=== PATIENT | male | born 1985 | race Two or more races ===

== ENCOUNTER 2017-12-18 18:41 | Emergency (ER) | payer SELFPAY ==
[~2017-12-18] VITALS: Ht 172.7 cm; Wt 81.6 kg
[2017-12-18 19:18] VITALS: BP 132/81
[2017-12-18] MEDS ORDERED: KETOROLAC 60 MG/2 ML INJ. IM ONE (19:45)
[2017-12-18] MEDS ORDERED: CLOB15CR TP (20:47)
[2017-12-18] MEDS ORDERED: CEPH-264 PO (20:47)
--- NOTE | 2017-12-18 20:47 | PHYS DOC ---
Past Medical History Past Medical History: No Pertinent History Past Surgical History: No Surgical History Additional Information: 0.25 PPD Alcohol Use: None Drug Use: None Adult General Chief Complaint Chief Complaint: INSECT BITE HPI HPI Patient is a 32 year old male who presents with bug bites to his forehead and behind his ear. He states that they are extremely itchy. They have been in place for about 4 days. He has tried [id number]-[id number] cream with no relief. He is also had a headache around his temples and in through the back of his head intermittently for 4 days. He denies changes in vision, gait changes, nausea or vomiting or fever. He has tried ibuprofen and Tylenol with little relief. Review of Systems Review of Systems Constitutional: Denies fever or chills [] Eyes: Denies change in visual acuity, redness, or eye pain [] HENT: Denies nasal congestion or sore throat [] Respiratory: Denies cough or shortness of breath [] Cardiovascular: No additional information not addressed in HPI [] GI: Denies abdominal pain, nausea, vomiting, bloody stools or diarrhea [] : Denies dysuria or hematuria [] Musculoskeletal: Denies back pain or joint pain [] Integument: See history of present illness Neurologic: See history of present illness Endocrine: Denies polyuria or polydipsia [] All other systems were reviewed and found to be within normal limits, except as documented in this note. Current Medications Current Medications Current Medications Medications (Trade) Dose Ordered Sig/Dennis Start Time Stop Time Status Last Admin Dose Admin Ketorolac Tromethamine (Toradol Im) 60 mg 1X ONCE 12/18/17 19:45 12/18/17 19:46 DC 12/18/17 20:19 60 MG Allergies Allergies Allergies Coded Allergies Type Severity Reaction Last Updated Verified No Known Drug Allergies 11/20/14 No Physical Exam Physical Exam Constitutional: Well developed, well nourished, no acute distress, non-toxic appearance. [] HENT: Normocephalic, atraumatic, bilateral external ears normal, oropharynx moist, no oral exudates, nose normal. [] Eyes: PERRLA, EOMI, conjunctiva normal, no discharge. [] Neck: Normal range of motion, no tenderness, supple, no stridor. [] Cardiovascular:Heart rate regular rhythm, no murmur [] Lungs & Thorax: Bilateral breath sounds clear to auscultation [] Abdomen: Bowel sounds normal, soft, no tenderness, no masses, no pulsatile masses. [] Skin: There are are several small erythematous papules to the forehead and behind the right ear that are consistent with an insect bite, they appear to be Oakleaf gall might bites Back: No tenderness, no meningeal tenderness, no CVA tenderness. [] Extremities: No tenderness, no cyanosis, no clubbing, ROM intact, no edema. [] Neurologic: Alert and oriented X 3, normal motor function, normal sensory function, no focal deficits noted, cranial nerves II through XII grossly intact. [] Psychologic: Affect normal, judgement normal, mood normal. [] Current Patient Data Vital Signs Vital Signs Date Time Temp Pulse Resp B/P (MAP) Pulse Ox O2 Delivery O2 Flow Rate FiO2 12/18/17 19:18 98.3 72 14 132/81 (98) 98 Room Air 98.3 EKG EKG [] Radiology/Procedures Radiology/Procedures [] Course & Med Decision Making Course & Med Decision Making Pertinent Labs and Imaging studies reviewed. (See chart for details) []The patient was given a dose of Toradol in the emergency department for his headache. Dragon Disclaimer Dragon Disclaimer This electronic medical record was generated, in whole or in part, using a voice recognition dictation system. Departure Departure Impression: Primary Impression: Insect bites Additional Impression: Headache Disposition: 01 HOME, SELF-CARE Condition: STABLE Referrals: NO PCP (PCP) Patient Instructions: General Headache Without Cause, Insect Bite Additional Instructions: Use the medication as directed. Follow-up with your primary care provider in 3 days if not improving or return to the emergency department if worsening. Scripts Cephalexin (KEFLEX) 500 Mg Capsule 1 CAP PO TID, #30 CAP Prov: ANDERS LOVE APRN 12/18/17 Clobetasol Propionate (CLOBETASOL PROPIONATE) 15 Gm Cream..g. 1 BORIS TP BID, #30 GM 1 Refill Prov: ANDERS LOVE APRN 12/18/17 Attending Signature Attending Signature I have reviewed the PA/BRIQUETTER OPERATOR's note and plan of care. I was available for consultation as needed during the patient's visit in the emergency department. I agree with the clinical impression, plan, and disposition. Problem Qualifiers ANDERS LOVE APRN Dec 18, 2017 20:47 DAMIEN SUMNER DO Dec 22, 2017 03:42
== END 2017-12-18 20:52 | disposition home or self-care (01) ==
LOC: ER 18:41
DX: S00.86XA Insect bite (nonvenomous) of other part of head, initial encounter (principal); S00.461A Insect bite (nonvenomous) of right ear, initial encounter; F17.200 Nicotine dependence, unspecified, uncomplicated; W57.XXXA Bitten or stung by nonvenomous insect and other nonvenomous arthropods, initial encounter; Y93.89 Activity, other specified; Y92.89 Other specified places as the place of occurrence of the external cause; Y99.8 Other external cause status
CPT/HCPCS: 96372; 99283; J1885

== ENCOUNTER 2017-12-19 19:31 | Emergency (ER) | payer SELFPAY ==
[~2017-12-19] VITALS: Ht 172.7 cm; Wt 81.6 kg
[~2017-12-19 19:31] MED LIST: CEPH-264 PO; CLOB15CR TP
[2017-12-19 20:15] VITALS: BP 125/79
[2017-12-19] MEDS ORDERED: diphenhydrAMINE 50 MG/ML VIAL IVP ONE (21:15)
[2017-12-19] MEDS ORDERED: METOCLOPRAMIDE HCL 10 MG/2 ML VIAL. IV ONE (21:15)
[2017-12-19 21:32] LABS: BILIRUBIN,URINE NEGATIVE (NEG); CLARITY,URINE CLEAR; COLOR,URINE YELLOW; NITRITE,URINE NEGATIVE (NEG); PH,URINE 5.5; PROTEIN,URINE NEGATIVE (NEG-TRACE)
--- NOTE | 2017-12-19 21:40 | RAD ---
CT scan of the head without contrast 12/19/2017 Clinical History: Worsening headache for 5 days. Technique: Unenhanced, contiguous, 5 mm axial sections were obtained through the head. One or more of the following individualized dose reduction techniques were utilized for this study: 1. Automated exposure control. 2. Adjustment of the mA and/or kV according to patient size. 3. Use of iterative reconstruction technique. Findings: The ventricles and sulci are within normal limits in size and configuration. No focal area of abnormal attenuation is seen involving the brain parenchyma. No extra-axial fluid collection is seen. No skull fracture is seen. A 2 cm mucous retention cyst is seen involving the right maxillary sinus. A 2.7 cm mucous retention cyst is seen involving left maxillary sinus. Mild to moderate mucosal thickening is seen involving the sphenoid sinus. Impression: No acute intracranial abnormality is seen. Electronically signed by: Grayson Grant MD (12/19/2017 9:36 PM) [facility]
[2017-12-19 21:44] LABS: BACTERIA,URINE 0 /HPF (0-FEW); SQUAMOUS EPITHELIAL CELL,UR FEW /LPF; WBC,URINE 0 /HPF (0-4)
--- NOTE | 2017-12-19 21:47 | PHYS DOC ---
Past Medical History Past Medical History: No Pertinent History Past Surgical History: No Surgical History Alcohol Use: None Drug Use: None Adult General Chief Complaint Chief Complaint: HEADACHE HPI HPI Patient is a 32 year old male who presents with a headache x 5 days. He denies visual changes, gait changes, nausea or vomiting. The patient was treated here yesterday for insect bites. He has been taking Advil for his headache. He did get a dose of Toradol yesterday in the emergency department for his headache. Review of Systems Review of Systems Constitutional: Denies fever or chills [] Eyes: Denies change in visual acuity, redness, or eye pain [] HENT: Denies nasal congestion or sore throat [] Respiratory: Denies cough or shortness of breath [] Cardiovascular: No additional information not addressed in HPI [] GI: Denies abdominal pain, nausea, vomiting, bloody stools or diarrhea [] : Denies dysuria or hematuria [] Musculoskeletal: Denies back pain or joint pain [] Integument: Denies rash or skin lesions [] Neurologic: See history of present illness Endocrine: Denies polyuria or polydipsia [] All other systems were reviewed and found to be within normal limits, except as documented in this note. Current Medications Current Medications Current Medications Medications (Trade) Dose Ordered Sig/Dennis Start Time Stop Time Status Last Admin Dose Admin Diphenhydramine HCl (Benadryl) 50 mg 1X ONCE 12/19/17 21:15 12/19/17 21:17 DC 12/19/17 21:39 50 MG Ketorolac Tromethamine (Toradol 30mg Vial) 30 mg 1X ONCE 12/19/17 22:30 12/19/17 22:31 DC 12/19/17 22:42 30 MG Metoclopramide HCl (Reglan Vial) 10 mg 1X ONCE 12/19/17 21:15 12/19/17 21:17 DC 12/19/17 21:39 10 MG Sodium Chloride 1,000 ml @ 1,000 mls/hr 1X ONCE 12/19/17 22:30 12/19/17 23:29 DC 12/19/17 22:42 1,000 MLS/HR Allergies Allergies Allergies Coded Allergies Type Severity Reaction Last Updated Verified No Known Drug Allergies 11/20/14 No Physical Exam Physical Exam Constitutional: Well developed, well nourished, no acute distress, non-toxic appearance. [] HENT: Normocephalic, atraumatic, bilateral external ears normal, oropharynx moist, no oral exudates, nose normal. [] Eyes: PERRLA, EOMI, conjunctiva normal, no discharge. [] Neck: Normal range of motion, no tenderness, supple, no stridor. [] Cardiovascular:Heart rate regular rhythm, no murmur [] Lungs & Thorax: Bilateral breath sounds clear to auscultation [] Abdomen: Bowel sounds normal, soft, no tenderness, no masses, no pulsatile masses. [] Skin: Warm, dry, no erythema, no rash. [] Back: No tenderness, no CVA tenderness. [] Extremities: No tenderness, no cyanosis, no clubbing, ROM intact, no edema. [] Neurologic: Alert and oriented X 3, normal motor function, normal sensory function, no focal deficits noted, no nerves II through XII are grossly intact, cerebellar function is intact. [] Psychologic: Affect normal, judgement normal, mood normal. [] Current Patient Data Vital Signs Vital Signs Date Time Temp Pulse Resp B/P (MAP) Pulse Ox O2 Delivery O2 Flow Rate FiO2 12/19/17 20:15 98.2 64 18 125/79 (94) 97 Room Air 98.2 Lab Values Laboratory Tests Test 12/19/17 21:20 12/19/17 21:30 Urine Collection Type Unknown Urine Color Yellow Urine Clarity Clear Urine pH 5.5 Urine Specific [place] 1.025 Urine Protein Negative mg/dL (NEG-TRACE) Urine Glucose (UA) Negative mg/dL (NEG) Urine Ketones (Stick) Negative mg/dL (NEG) Urine Blood Trace (NEG) Urine Nitrite Negative (NEG) Urine Bilirubin Negative (NEG) Urine Urobilinogen Dipstick 1.0 mg/dL (0.2 mg/dL) Urine Leukocyte Esterase Negative (NEG) Urine RBC 3-5 /HPF (0-2) Urine WBC 0 /HPF (0-4) Urine Squamous Epithelial Cells Few /LPF Urine Bacteria 0 /HPF (0-FEW) Urine Mucus Mod /LPF White Blood Count 7.8 x10^3/uL (4.0-11.0) Red Blood Count 4.89 x10^6/uL (4.30-5.70) Hemoglobin 15.2 g/dL (13.0-17.5) Hematocrit 43.7 % (39.0-53.0) Mean Corpuscular Volume 90 fL (79-100) Mean Corpuscular Hemoglobin 31 pg (25-35) Mean Corpuscular Hemoglobin Concent 35 g/dL (31-37) Red Cell Distribution Width 13.3 % (11.5-14.5) Platelet Count 313 x10^3/uL (140-400) Neutrophils (%) (Auto) 61 % (31-73) Lymphocytes (%) (Auto) 26 % (24-48) Monocytes (%) (Auto) 7 % (0-9) Eosinophils (%) (Auto) 5 % (0-3) H Basophils (%) (Auto) 1 % (0-3) Neutrophils # (Auto) 4.8 x10^3uL (1.8-7.7) Lymphocytes # (Auto) 2.0 x10^3/uL (1.0-4.8) Monocytes # (Auto) 0.6 x10^3/uL (0.0-1.1) Eosinophils # (Auto) 0.4 x10^3/uL (0.0-0.7) Basophils # (Auto) 0.1 x10^3/uL (0.0-0.2) Sodium Level 139 mmol/L (136-145) Potassium Level 4.1 mmol/L (3.5-5.1) Chloride Level 104 mmol/L (98-107) Carbon Dioxide Level 28 mmol/L (21-32) Anion Gap 7 (6-14) Blood Urea Nitrogen 16 mg/dL (8-26) Creatinine 1.1 mg/dL (0.7-1.3) Estimated GFR (Cockcroft-Gault) 77.1 BUN/Creatinine Ratio 15 (6-20) Glucose Level 100 mg/dL (70-99) H Calcium Level 8.8 mg/dL (8.5-10.1) Total Bilirubin 0.4 mg/dL (0.2-1.0) Aspartate Amino Transferase (AST) 17 U/L (15-37) Alanine Aminotransferase (ALT) 21 U/L (16-63) Alkaline Phosphatase 94 U/L (46-116) Total Protein 7.8 g/dL (6.4-8.2) Albumin 4.1 g/dL (3.4-5.0) Albumin/Globulin Ratio 1.1 (1.0-1.7) Laboratory Tests 12/19/17 21:30 Laboratory Tests 12/19/17 21:30 EKG EKG [] Radiology/Procedures Radiology/Procedures []PATIENT: BRIELLE BALLUNT: [id number]#: [id number] : 1985 LOCATION: ER AGE: 32 SEX: M EXAM STATUS: REG ER ORD. PHYSICIAN: ANDERS LOVE APRN REASON: headache x 5 days PROCEDURE: CT HEAD WO CONTRAST CT scan of the head without contrast 12/19/2017 Clinical History: Worsening headache for 5 days. Technique: Unenhanced, contiguous, 5 mm axial sections were obtained through the head. One or more of the following individualized dose reduction techniques were utilized for this study: 1. Automated exposure control. 2. Adjustment of the mA and/or kV according to patient size. 3. Use of iterative reconstruction technique. Findings: The ventricles and sulci are within normal limits in size and configuration. No focal area of abnormal attenuation is seen involving the brain parenchyma. No extra-axial fluid collection is seen. No skull fracture is seen. A 2 cm mucous retention cyst is seen involving the right maxillary sinus. A 2.7 cm mucous retention cyst is seen involving left maxillary sinus. Mild to moderate mucosal thickening is seen involving the sphenoid sinus. Impression: No acute intracranial abnormality is seen. Electronically signed by: Grayson Grant MD (12/19/2017 9:36 PM) [facility] DICTATED and SIGNED BY: GRAYSON GRANT MD DATE: 12/19/172132 Course & Med Decision Making Course & Med Decision Making Pertinent Labs and Imaging studies reviewed. (See chart for details) []The patient received IV fluids, Reglan, Benadryl and Toradol in the emergency department for his headache. He states that the medications have relieved his symptoms. Dragon Disclaimer Dragon Disclaimer This electronic medical record was generated, in whole or in part, using a voice recognition dictation system. Departure Departure Impression: Primary Impression: Headache Disposition: HOME, SELF-CARE Condition: STABLE Referrals: NO PCP (PCP) Patient Instructions: General Headache Without Cause Additional Instructions: Follow-up with your primary care provider for recheck in 2 days if your headache is not resolved. Return to the emergency department if worsening. Attending Signature Attending Signature I have reviewed the PA/BREAKER UNIT ASSEMBLER's note and plan of care. I was available for consultation as needed during the patient's visit in the emergency department. I agree with the clinical impression, plan, and disposition. ANDERS LOVE APRN Dec 19, 2017 21:47 DAMIEN SUMNER DO Dec 22, 2017 03:47
[2017-12-19 21:54] LABS: BASO # 0.1 x10^3/uL (0.0-0.2); BASO % 1 % (0-3); EOS # 0.4 x10^3/uL (0.0-0.7); EOS % 5 % (0-3); HEMATOCRIT 43.7 % (39.0-53.0); HEMOGLOBIN 15.2 g/dL (13.0-17.5); LYMPH % 26 % (24-48); MEAN CORPUSCULAR HEMOGLOBIN 31 pg (25-35); MEAN CORPUSCULAR HGB CONC 35 g/dL (31-37); MEAN CORPUSCULAR VOLUME 90 fL (79-100); MONO # 0.6 x10^3/uL (0.0-1.1); MONO % 7 % (0-9); NEUT # 4.8 x10^3uL (1.8-7.7); NEUT % 61 % (31-73); PLATELET COUNT 313 x10^3/uL (140-400); RED BLOOD COUNT 4.89 x10^6/uL (4.30-5.70); RED CELL DISTRIBUTION WIDTH 13.3 % (11.5-14.5); WHITE BLOOD COUNT 7.8 x10^3/uL (4.0-11.0)
[2017-12-19 22:10] LABS: CALCIUM 8.8 mg/dL (8.5-10.1); CREATININE 1.1 mg/dL (0.7-1.3); GFR 77.1; POTASSIUM 4.1 mmol/L (3.5-5.1)
[2017-12-19 22:17] LABS: ALBUMIN 4.1 g/dL (3.4-5.0); ALBUMIN/GLOBULIN RATIO 1.1 (1.0-1.7); TOTAL BILIRUBIN 0.4 mg/dL (0.2-1.0); TOTAL PROTEIN 7.8 g/dL (6.4-8.2)
[2017-12-19] MEDS ORDERED: IV NORMAL SALINE 1000ML BAG 1,000 ML IV ONE (22:30)
[2017-12-19] MEDS ORDERED: KETOROLAC 30 MG/ML VIAL. IV ONE (22:30)
== END 2017-12-19 23:30 | disposition home or self-care (01) ==
LOC: ER 19:31
DX: R51 Headache (principal)
CPT/HCPCS: 36415; 70450; 80053; 81001; 85025; 96374; 96375; 99285; J1200; J1885; J2765; J7030